=== PATIENT | male | born 1945 ===

== ENCOUNTER 2018-01-08 14:02 | Outpatient (CLI) | payer OTHER ==
[~2018-01-08 14:02] MED LIST: HYDRALAZINE HCL10 MG; OMEPRAZOLE20 MG; XANAX0.25 MG; ZOCOR40 MG
== END 2018-01-08 14:07 | disposition home or self-care (01) ==
LOC: LAB 14:02
DX: R97.20 Elevated prostate specific antigen [PSA] (principal)

== ENCOUNTER 2018-02-26 07:06 | Outpatient (CLI) | payer OTHER | END 2018-02-26 16:52 | disposition home or self-care (01) | LOC: SONOGRAMA 07:06 | DX: R97.20 Elevated prostate specific antigen [PSA] (principal) ==